=== PATIENT | male | born 1960 | race African-American/Black ===

== ENCOUNTER 2019-01-18 18:43 | Inpatient (IN) | payer OTHER ==
[~2019-01-18] VITALS: Ht 175.3 cm; Wt 88.5 kg
[2019-01-18] MEDS ORDERED: SODIUM CHLORIDE 0.9% 1,000 ML IV ONE (19:15)
[2019-01-18 20:36] LABS: *AMPHETAMINES SCREEN URINE NEGATIVE (NEGATIVE); *BARBITURATES SCREEN URINE NEGATIVE (NEGATIVE)
[2019-01-18 20:37] LABS: *BENZODIAZEPINES SCREEN URINE NEGATIVE (NEGATIVE); *COCAINE SCREEN URINE NEGATIVE (NEGATIVE); CANNABINOID URINE SCREEN PRESUMTIVE POSITIVE (NEGATIVE); METHADONE URINE SCREEN NEGATIVE (NEGATIVE); OPIATES URINE SCREEN NEGATIVE (NEGATIVE); PHENCYCLIDINE URINE SCREEN NEGATIVE (NEGATIVE)
[2019-01-18 21:13] LABS: BASOPHILS % 0.4 % (0.0-2.0); EOSINOPHILS % 0.8 % (0.0-5.0); HEMATOCRIT. 32.8 % (42.0-52.0); HEMOGLOBIN. 11.1 g/dL (14.0-18.0); LYMPHOCYTES % 21.1 % (20.0-50.0); MEAN CORPUSCULAR VOLUME 106.3 fL (80.0-94.0); MONOCYTES % 8.1 % (2.0-8.0); NEUTROPHILS % 69.6 % (40.0-76.0); PLATELET 242 x1000/uL (130-400); RED BLOOD CELL COUNT 3.08 mill/uL (4.7-6.1); RED CELL DISTRIBUTION WIDTH 15.8 % (11.6-14.6)
[2019-01-18 21:17] LABS: CHLORIDE 101 mEq/L (98-107)
[2019-01-18 21:19] LABS: PARTIAL THROMBOPLASTIN TIME 24.2 sec (23.4-31.0); PROTHROMBIN TIME 10.2 sec (9.1-11.1)
[2019-01-18 21:20] LABS: ETHANOL BLOOD 274 mg/dL
[2019-01-18] MEDS ORDERED: SODIUM CHLORIDE 0.9% 1000ML BAG (SEPSIS BOLUS) IV ONE (21:30)
[2019-01-18] MEDS ORDERED: LEVOFLOXACIN 750MG PREMIX 150 ML IV ONE (21:30)
[2019-01-18] MEDS ORDERED: ASPIRIN 81MG TABLET PO ONE (21:45)
[2019-01-18 22:33] LABS: CLARITY URINE CLEAR (CLEAR); COLOR URINE YELLOW (YELLOW); KETONES URINE NEGATIVE (NEGATIVE); LEUKOCYTE ESTERASE URINE NEGATIVE (NEGATIVE); NITRITE URINE NEGATIVE (NEGATIVE); OCCULT BLOOD URINE NEGATIVE (NEGATIVE); PROTEIN URINE NEGATIVE (NEGATIVE); SPECIFIC GRAVITY URINE 1.005 (1.005-1.030); UROBILINOGEN URINE 0.2 E.U./dL (0.2-1.0)
[2019-01-18] MEDS ORDERED: SODIUM CHLORIDE 0.9% 1,000 ML IV SCH (23:41)
[2019-01-19] MEDS ORDERED: DOCUSATE SODIUM 100MG CAPSULE PO PRN (06:00)
[2019-01-19] MEDS ORDERED: ACETAMINOPHEN 325MG TABLET PO PRN (06:00)
[2019-01-19] MEDS ORDERED: GUAIFENESIN 200MG/10ML SUGAR FREE UDC PO PRN (06:00)
[2019-01-19] MEDS ORDERED: ONDANSETRON HCL 4MG/2ML INJ IV PRN (06:00)
[2019-01-19] MEDS ORDERED: HYDROCODONE/ACETAMINOPHEN 5/325MG TABLET PO PRN (06:00)
[2019-01-19 06:29] LABS: CREATINE KINASE 256 IU/L (39-308)
[2019-01-19] MEDS: SODIUM CHLORIDE 0.9% 1,000 ML IV SCH ×2 (06:52→16:10)
[2019-01-19 10:20] VITALS: BP 129/82
[2019-01-19 11:16] VITALS: BP 129/82
[2019-01-19 12:00] VITALS: BP 135/84
[2019-01-19] MEDS ORDERED: ENOXAPARIN 40MG/0.4ML SYR SUBCUT SCH (12:00)
[2019-01-19] MEDS ORDERED: LORAZEPAM 2MG/ML CPJ IM PRN (13:45)
[2019-01-19 15:30] LABS: CREATINE KINASE 228 IU/L (39-308)
[2019-01-19 16:00] VITALS: BP 144/97
[2019-01-19 20:00] VITALS: BP 148/97
[2019-01-20] VITALS: BP 141/79
[2019-01-20 04:00] VITALS: BP 146/87
[2019-01-20 06:38] LABS: CHLORIDE 108 mEq/L (98-107)
[2019-01-20 07:09] LABS: LDL CHOLESTEROL 58 mg/dL (5-100)
[2019-01-20 07:10] LABS: HDL CHOLESTEROL 74 mg/dL (40-59); T4 FREE 0.88 ng/dL (0.76-1.46)
[2019-01-20 07:25] LABS: BASOPHILS % 0.5 % (0.0-2.0); EOSINOPHILS % 2.8 % (0.0-5.0); HEMATOCRIT. 30.1 % (42.0-52.0); HEMOGLOBIN. 10.1 g/dL (14.0-18.0); LYMPHOCYTES % 32.6 % (20.0-50.0); MEAN CORPUSCULAR HEMOGLOBIN 35.7 pg (28.0-32.0); MEAN CORPUSCULAR VOLUME 106.6 fL (80.0-94.0); MEAN PLATELET VOLUME 7.2 fl (7.4-10.4); MONOCYTES % 11.9 % (2.0-8.0); NEUTROPHILS % 52.2 % (40.0-76.0); PLATELET 189 x1000/uL (130-400); RED BLOOD CELL COUNT 2.83 mill/uL (4.7-6.1); RED CELL DISTRIBUTION WIDTH 15.5 % (11.6-14.6)
[2019-01-20 08:00] VITALS: BP 141/97
[2019-01-20 09:44] VITALS: BP 141/97
== END 2019-01-20 10:30 | disposition home or self-care (01) | DRG 74 ==
LOC: ER 19:05 → 8WST 23:42 → EDBEDREQ 23:46 → EDBEDREQTM 23:46 → EDBEDREQ 01-19 00:26 → SUPCPDRO 01-19 05:54 → ENRESERV 01-19 08:17
PROVIDERS: ADMIT Hospitalist; ATTEND Hospitalist
DX: G90.8 Other disorders of autonomic nervous system (principal); N17.9 Acute kidney failure, unspecified; J44.9 Chronic obstructive pulmonary disease, unspecified; E11.9 Type 2 diabetes mellitus without complications; I10 Essential (primary) hypertension; E78.5 Hyperlipidemia, unspecified; F10.129 Alcohol abuse with intoxication, unspecified; E78.00 Pure hypercholesterolemia, unspecified; Y90.8 Blood alcohol level of 240 mg/100 ml or more
CPT/HCPCS: 36415; 71045; 80061; 80305; 80320; 82550; 83605; 83880; 84439; 84443; 84484; 93005; 93306; 93970; 96365; 96366; 99285; J1650; J1956; J7030; G0480

== ENCOUNTER 2020-04-06 18:44 | Inpatient (IN) | payer OTHER ==
[~2020-04-06] VITALS: Ht 175.3 cm; Wt 61.4 kg
[2020-04-06] MEDS ORDERED: LEVOFLOXACIN 750MG PREMIX 150 ML IV ONE (19:15)
[2020-04-06] MEDS ORDERED: SODIUM CHLORIDE 0.9% 1000ML BAG (SEPSIS BOLUS) IV ONE (19:15)
[2020-04-06] MEDS ORDERED: LEVETIRACETAM 500MG PREMIX 100 ML IV ONE (19:15)
[2020-04-06 19:45] LABS: HEMATOCRIT. 32.1 % (42.0-52.0); MEAN CORPUSCULAR HEMOGLOBIN 31.1 pg (28.0-32.0); MEAN CORPUSCULAR VOLUME 90.6 fL (80.0-94.0); MEAN PLATELET VOLUME 7.3 fl (7.4-10.4); PLATELET 351 x1000/uL (130-400); RED BLOOD CELL COUNT 3.54 mill/uL (4.7-6.1); RED CELL DISTRIBUTION WIDTH 17.8 % (11.6-14.6)
[2020-04-06 19:54] LABS: CHLORIDE 100 mEq/L (98-107)
[2020-04-06 19:55] LABS: PROTHROMBIN TIME 10.9 sec (9.6-11.0)
[2020-04-06 20:09] LABS: CARBAMAZEPINE < 0.5 ug/mL (4-12); PHENOBARBITAL < 2.1 ug/mL (15.0-40.0); VALPROIC ACID < 3.0 ug/mL (50-100)
[2020-04-06 20:11] LABS: PLATELET ESTIMATE NORMAL
[2020-04-07 01:00] VITALS: BP 109/77
[2020-04-07 01:15] VITALS: BP 109/77
[2020-04-07] MEDS ORDERED: MORPHINE SULFATE 2 MG/ML CPJ (NOT FOR IM USE) IV PRN (02:30)
[2020-04-07] MEDS ORDERED: ACETAMINOPHEN 325MG TABLET PO PRN (02:30)
[2020-04-07] MEDS: SODIUM CHLORIDE 0.9% 1,000 ML IV SCH ×3 (03:42→21:08)
[2020-04-07 04:00] VITALS: BP 118/77
[2020-04-07 06:43] LABS: CLARITY URINE CLEAR (CLEAR); COLOR URINE DARK YELLOW (YELLOW); KETONES URINE TRACE (NEGATIVE); LEUKOCYTE ESTERASE URINE TRACE (NEGATIVE); NITRITE URINE NEGATIVE (NEGATIVE); OCCULT BLOOD URINE NEGATIVE (NEGATIVE); PROTEIN URINE 1+ (NEGATIVE); UROBILINOGEN URINE 0.2 E.U./dL (0.2-1.0)
[2020-04-07 06:59] LABS: *AMPHETAMINES SCREEN URINE NEGATIVE (NEGATIVE); *BARBITURATES SCREEN URINE NEGATIVE (NEGATIVE); *BENZODIAZEPINES SCREEN URINE NEGATIVE (NEGATIVE); *COCAINE SCREEN URINE NEGATIVE (NEGATIVE)
[2020-04-07 07:00] LABS: CANNABINOID URINE SCREEN NEGATIVE (NEGATIVE); METHADONE URINE SCREEN NEGATIVE (NEGATIVE); OPIATES URINE SCREEN NEGATIVE (NEGATIVE); PHENCYCLIDINE URINE SCREEN NEGATIVE (NEGATIVE)
[2020-04-07 08:00] VITALS: BP 107/74
[2020-04-07] MEDS: PANTOPRAZOLE 40MG DR TABLET PO SCH (08:58)
[2020-04-07] MEDS: LEVETIRACETAM 500MG TABLET PO SCH ×2 (08:58→20:12)
[2020-04-07] MEDS: CEFTRIAXONE 1 G PREMIX 50 ML IV SCH (08:58)
[2020-04-07] MEDS ORDERED: POTASSIUM CHLORIDE 20MEQ TABLET SR PO NR (09:45)
[2020-04-07 10:10] LABS: BASOPHILS % 0.7 % (0.0-2.0); EOSINOPHILS % 1.5 % (0.0-5.0); HEMATOCRIT. 31.2 % (42.0-52.0); HEMOGLOBIN. 10.7 g/dL (14.0-18.0); LYMPHOCYTES % 16.1 % (20.0-50.0); MEAN CORPUSCULAR HEMOGLOBIN 31.2 pg (28.0-32.0); MEAN CORPUSCULAR VOLUME 91.5 fL (80.0-94.0); MEAN PLATELET VOLUME 7.6 fl (7.4-10.4); MONOCYTES % 13.1 % (2.0-8.0); NEUTROPHILS % 68.6 % (40.0-76.0); PLATELET 331 x1000/uL (130-400); RED BLOOD CELL COUNT 3.41 mill/uL (4.7-6.1); RED CELL DISTRIBUTION WIDTH 18.7 % (11.6-14.6)
[2020-04-07] MEDS ORDERED: KCL 20MEQ/100ML PREMIX 100 ML IV NR (12:00)
[2020-04-07] MEDS ORDERED: FOLIC ACID 1 MG, THIAMINE HCL 100 MG, MVI, ADULT NO.1 10 ML in DEXTROSE 5% WATER 1,000 ML IV ONE ×4 (12:00)
[2020-04-07 16:00] VITALS: BP 144/110
[2020-04-07] MEDS ORDERED: ALBUTEROL 6.7GM HFA INHALER ORI PRN (17:30)
[2020-04-07 20:00] VITALS: BP 120/88
[2020-04-07] MEDS: ENOXAPARIN 30MG/0.3ML SYR SUBCUT SCH (20:11)
[2020-04-07] MEDS: DOXYCYCLINE HYCLATE 100MG CAPSULE PO SCH (21:09)
[2020-04-08] VITALS (7 sets, daily range): BP systolic 112–137; BP diastolic 75–99
[2020-04-08] MEDS: SODIUM CHLORIDE 0.9% 1,000 ML IV SCH ×3 (01:34→16:59)
[2020-04-08] MEDS: PANTOPRAZOLE 40MG DR TABLET PO SCH (06:32)
[2020-04-08 07:26] LABS: BASOPHILS % 0.4 % (0.0-2.0); EOSINOPHILS % 1.9 % (0.0-5.0); HEMATOCRIT. 29.6 % (42.0-52.0); HEMOGLOBIN. 10.2 g/dL (14.0-18.0); LYMPHOCYTES % 25.6 % (20.0-50.0); MEAN CORPUSCULAR HEMOGLOBIN 31.3 pg (28.0-32.0); MEAN CORPUSCULAR VOLUME 90.4 fL (80.0-94.0); MONOCYTES % 11.2 % (2.0-8.0); NEUTROPHILS % 60.9 % (40.0-76.0); PLATELET 302 x1000/uL (130-400); RED BLOOD CELL COUNT 3.27 mill/uL (4.7-6.1); RED CELL DISTRIBUTION WIDTH 17.9 % (11.6-14.6)
[2020-04-08 07:47] LABS: CHLORIDE 107 mEq/L (98-107)
[2020-04-08 08:08] LABS: HEPATITIS B SURFACE ANTIGEN NEGATIVE
[2020-04-08 08:10] LABS: PHOSPHORUS 2.1 mg/dL (2.5-4.9)
[2020-04-08 08:37] LABS: HEPATITIS A AB IGM NEGATIVE (NEGATIVE)
[2020-04-08] MEDS ORDERED: MAGNESIUM 2 G PREMIX 50 ML IV NR (10:00)
[2020-04-08] MEDS: LEVETIRACETAM 500MG TABLET PO SCH ×2 (10:16→21:11)
[2020-04-08] MEDS: DOXYCYCLINE HYCLATE 100MG CAPSULE PO SCH ×2 (10:16→21:11)
[2020-04-08] MEDS ORDERED: METOPROLOL TARTRATE 25MG TABLET PO SCH (12:00)
[2020-04-08] MEDS ORDERED: POTASSIUM CHLORIDE 20MEQ TABLET SR PO SCH ×2 (12:00→13:00)
[2020-04-08] MEDS ORDERED: IPRATROPIUM/ALBUTEROL 0.5-3(2.5)MG/3ML NEB HHN PRN (12:15)
[2020-04-08] MEDS: CEFTRIAXONE 1 G PREMIX 50 ML IV SCH (12:39)
[2020-04-08] MEDS ORDERED: POTASSIUM PHOS,M-BASIC-D-BASIC 10 MMOL in DEXT 5% WATER 246.6667 ML IV SCH (13:00)
[2020-04-08] MEDS ORDERED: MAGNESIUM 2 G PREMIX 50 ML IV SCH (13:00)
[2020-04-08] MEDS: ENOXAPARIN 30MG/0.3ML SYR SUBCUT SCH (20:00)
[2020-04-08] MEDS: METOPROLOL TARTRATE 25MG TABLET PO SCH (21:11)
[2020-04-09 04:00] VITALS: BP 110/72
[2020-04-09 07:33] LABS: HEMATOCRIT. 29.8 % (42.0-52.0); HEMOGLOBIN. 9.9 g/dL (14.0-18.0); MEAN CORPUSCULAR HEMOGLOBIN 30.1 pg (28.0-32.0); MEAN CORPUSCULAR VOLUME 90.7 fL (80.0-94.0); MEAN PLATELET VOLUME 8.2 fl (7.4-10.4); PLATELET 294 x1000/uL (130-400); RED BLOOD CELL COUNT 3.29 mill/uL (4.7-6.1); RED CELL DISTRIBUTION WIDTH 17.8 % (11.6-14.6)
[2020-04-09 07:45] LABS: CHLORIDE 113 mEq/L (98-107)
[2020-04-09 07:51] LABS: PHOSPHORUS 1.6 mg/dL (2.5-4.9)
[2020-04-09 08:00] VITALS: BP 146/95
[2020-04-09] MEDS: FAMOTIDINE 20MG TABLET PO SCH (09:01)
[2020-04-09] MEDS: DOXYCYCLINE HYCLATE 100MG CAPSULE PO SCH ×2 (09:01→21:09)
[2020-04-09] MEDS: LEVETIRACETAM 500MG TABLET PO SCH ×2 (09:01→21:09)
[2020-04-09] MEDS: CEFTRIAXONE 1 G PREMIX 50 ML IV SCH (09:01)
[2020-04-09] MEDS: SODIUM CHLORIDE 0.9% 1,000 ML IV SCH (09:02)
[2020-04-09] MEDS: METOPROLOL TARTRATE 25MG TABLET PO SCH ×2 (09:04→21:09)
[2020-04-09] MEDS ORDERED: MAGNESIUM 2 G PREMIX 50 ML IV SCH (11:00)
[2020-04-09 12:00] VITALS: BP 133/84
[2020-04-09 12:46] LABS: PLATELET ESTIMATE NORMAL
[2020-04-09] MEDS ORDERED: MAGNESIUM 2 G PREMIX 50 ML IV NR (13:00)
[2020-04-09] MEDS ORDERED: POTASSIUM PHOS,M-BASIC-D-BASIC 30 MMOL in SODIUM CHLORIDE 0.9% 500 ML IV NR (13:30)
[2020-04-09 16:00] VITALS: BP 135/97
[2020-04-09 20:00] VITALS: BP 131/90
[2020-04-09] MEDS: ENOXAPARIN 30MG/0.3ML SYR SUBCUT SCH (21:10)
[2020-04-10] VITALS: BP 145/90
[2020-04-10 04:00] VITALS: BP 135/96
[2020-04-10] MEDS: SODIUM CHLORIDE 0.9% 1,000 ML IV SCH (05:37)
[2020-04-10 06:46] LABS: BASOPHILS % 0.8 % (0.0-2.0); EOSINOPHILS % 2.3 % (0.0-5.0); HEMATOCRIT. 29.8 % (42.0-52.0); LYMPHOCYTES % 37.3 % (20.0-50.0); MEAN CORPUSCULAR HEMOGLOBIN 30.8 pg (28.0-32.0); MEAN CORPUSCULAR VOLUME 91.2 fL (80.0-94.0); MEAN PLATELET VOLUME 7.5 fl (7.4-10.4); NEUTROPHILS % 45.6 % (40.0-76.0); PLATELET 252 x1000/uL (130-400); RED BLOOD CELL COUNT 3.26 mill/uL (4.7-6.1)
[2020-04-10] MEDS: FAMOTIDINE 20MG TABLET PO SCH (06:56)
[2020-04-10 07:01] LABS: CHLORIDE 117 mEq/L (98-107)
[2020-04-10 07:13] LABS: PHOSPHORUS 3.3 mg/dL (2.5-4.9)
[2020-04-10 08:00] VITALS: BP 147/88
[2020-04-10] MEDS: CEFTRIAXONE 1 G PREMIX 50 ML IV SCH (08:19)
[2020-04-10] MEDS: DOXYCYCLINE HYCLATE 100MG CAPSULE PO SCH (08:19)
[2020-04-10] MEDS: LEVETIRACETAM 500MG TABLET PO SCH (08:19)
[2020-04-10] MEDS: METOPROLOL TARTRATE 25MG TABLET PO SCH (08:20)
[2020-04-10 12:00] VITALS: BP 131/68
[2020-04-10 16:00] VITALS: BP 133/94
[2020-04-10] MEDS ORDERED: ENOXAPARIN 40MG/0.4ML SYR SUBCUT SCH (20:00)
[2020-04-10 20:07] VITALS: BP 124/82
[2020-04-10] MEDS ORDERED: METOPROLOL TARTRATE 50MG TABLET PO SCH (21:00)
== END 2020-04-10 20:29 | disposition short-term general hospital (02) | DRG 871 ==
LOC: ER 18:44 → EDBEDREQ 21:48 → MICUSO 22:30 → 7WST 04-07 01:29 → 8WST 04-08 01:20
PROVIDERS: ADMIT Internal Medicine; ATTEND Internal Medicine
DX: A41.9 Sepsis, unspecified organism (principal); N17.0 Acute kidney failure with tubular necrosis; E44.1 Mild protein-calorie malnutrition; N39.0 Urinary tract infection, site not specified; G40.89 Other seizures; E87.6 Hypokalemia; F10.10 Alcohol abuse, uncomplicated; D64.9 Anemia, unspecified; J44.9 Chronic obstructive pulmonary disease, unspecified; E78.00 Pure hypercholesterolemia, unspecified; I10 Essential (primary) hypertension; E11.9 Type 2 diabetes mellitus without complications; Y90.9 Presence of alcohol in blood, level not specified; E78.5 Hyperlipidemia, unspecified; E11.42 Type 2 diabetes mellitus with diabetic polyneuropathy; F32.9 Major depressive disorder, single episode, unspecified; M54.5 Low back pain; G89.29 Other chronic pain; D72.810 Lymphocytopenia; Z20.828 Contact with and (suspected) exposure to other viral communicable diseases; Z68.20 Body mass index [BMI] 20.0-20.9, adult; Z82.49 Family history of ischemic heart disease and other diseases of the circulatory system
CPT/HCPCS: 36415; 71045; 76770; 80048; 80053; 80156; 80165; 80184; 80185; 80305; 80320; 81003; 82140; 82550; 83605; 83735; 83880; 83930; 84100; 84145; 84484; 85025; 86705; 86709; 86803; 87340; 93005; 99285; J0696; J1650; J1953; J1956; J3411; J3475; J3480; J3490; J7030; J7040; J7060; J7070; G0480; U0003-CS